=== PATIENT | male | born 1945 | race Caucasian/White ===

== ENCOUNTER 2022-06-24 15:13 | Inpatient (IN) | payer OTHER ==
[~2022-06-24] VITALS: Ht 177.8 cm; Wt 88.5 kg
[~2022-06-24 15:13] MED LIST: COZAAR50 MG PO; CRESTOR10 MG PO; LEVAQUIN750 MG PO
[2022-06-24] MEDS ORDERED: TAMSULOSIN HCL0.4 MG PO (15:22)
--- NOTE | 2022-06-24 15:23 | NUR ---
PACIENTE RECIBIDO EN AMBULANCIA EL MISMO REFIERE DOLOR EN TODO EL CUERPO, EN EL ABDOMEN Y PELVIS. REFIERE QUE EN EL MORALES DE MEGAN ESTUVO ORINANDO MUCHO Y CON EARNEST.
--- NOTE | 2022-06-24 16:57 | NUR ---
PTE MASCULINO ALERTA Y ORIENTADAO X3 ES EVALUADO POR . SE ORIENTA SOBRE ORDENES DE [place] REFIERE COMPRENDER. SE COLECTAN MUESTRAS DE LABORATORIOS Y SE CANALIZA VENA BAJO MEDIDAS ASEPTICAS. SE ADMINISTRAN MEDICAMENTOS, BAJO MEDIDAS ASEPTICAS.
[2022-07-07] MEDS ORDERED: TIZANIDINE HCL4 M1 (16:15)
[2022-07-07] MEDS ORDERED: FINASTERIDE5 MG (16:15)
[2022-07-07] MEDS ORDERED: EZETIMIBE10 MG (16:15)
[2022-07-09] MEDS ORDERED: FINASTERIDE5 MG PO (13:40)
[2022-07-09] MEDS ORDERED: VITAMIN C500 M1 PO (13:40)
[2022-07-09] MEDS ORDERED: TAMSULOSIN HCL0.4 MG PO (13:40)
[2022-07-09] MEDS ORDERED: cardura PO (13:40)
== END 2022-07-09 17:41 | disposition home or self-care (01) | DRG 689 ==
LOC: ER 15:13 → MEDJ 21:23 → MEDI 06-25 14:03 → MEDJ 07-05 12:57
PROVIDERS: ADMIT Internal Medicine Geriatric Medicine; ATTEND Internal Medicine Geriatric Medicine
PROC: 8E0ZXY6 Isolation (ICD-10-PCS; 2022-06-26)
PROC: BW21YZZ Computerized Tomography (CT Scan) of Abdomen and Pelvis using Other Contrast (ICD-10-PCS; 2022-06-30)
PROC: 02HV33Z Insertion of Infusion Device into Superior Vena Cava, Percutaneous Approach (ICD-10-PCS; principal; 2022-07-02)
DX: N39.0 Urinary tract infection, site not specified (principal); U07.1 COVID-19; Z16.12 Extended spectrum beta lactamase (ESBL) resistance; N17.8 Other acute kidney failure; B96.29 Other Escherichia coli [E. coli] as the cause of diseases classified elsewhere; N41.8 Other inflammatory diseases of prostate; E78.5 Hyperlipidemia, unspecified; N40.1 Benign prostatic hyperplasia with lower urinary tract symptoms; I25.10 Atherosclerotic heart disease of native coronary artery without angina pectoris; I12.9 Hypertensive chronic kidney disease with stage 1 through stage 4 chronic kidney disease, or unspecified chronic kidney disease; N18.9 Chronic kidney disease, unspecified

== ENCOUNTER 2022-12-03 10:58 | Inpatient (IN) | payer OTHER ==
[~2022-12-03] VITALS: Ht 152.4 cm; Wt 93.0 kg
[~2022-12-03 10:58] MED LIST changes: +EZETIMIBE10 MG; +FINASTERIDE5 MG; +FINASTERIDE5 MG PO; +TAMSULOSIN HCL0.4 MG PO; +TIZANIDINE HCL4 M1; +VITAMIN C500 M1 PO; +cardura PO
[2022-12-11] MEDS ORDERED: LOSARTAN POTAS100 MG PO (14:02)
[2022-12-11] MEDS ORDERED: INTESTINEX680 M1 PO (14:02)
[2022-12-11] MEDS ORDERED: AMOX-CLAV 875-1 EAC1 PO (14:02)
[2022-12-11] MEDS ORDERED: TAMS0.4C PO (14:02)
== END 2022-12-11 17:18 | disposition home or self-care (01) | DRG 683 ==
LOC: ER 10:58 → MEDJ 16:59 → MEDI 12-04 19:42
PROVIDERS: ADMIT Internal Medicine; ATTEND Internal Medicine
PROC: BT4JZZZ Ultrasonography of Kidneys and Bladder (ICD-10-PCS; principal; 2022-12-08)
DX: N17.8 Other acute kidney failure (principal); N39.0 Urinary tract infection, site not specified; N41.0 Acute prostatitis; B96.29 Other Escherichia coli [E. coli] as the cause of diseases classified elsewhere; I12.9 Hypertensive chronic kidney disease with stage 1 through stage 4 chronic kidney disease, or unspecified chronic kidney disease; N18.9 Chronic kidney disease, unspecified; E86.0 Dehydration; E78.49 Other hyperlipidemia; N20.0 Calculus of kidney

== ENCOUNTER 2024-03-15 10:03 | Outpatient (CLI) | payer OTHER ==
[~2024-03-15 10:03] MED LIST changes: +AMOX-CLAV 875-1 EAC1 PO; +INTESTINEX680 M1 PO; +LOSARTAN POTAS100 MG PO; +TAMS0.4C PO
== END 2024-03-15 10:14 | disposition home or self-care (01) ==
LOC: MRI 10:03
PROVIDERS: ATTEND Internal Medicine
DX: M51.26 Other intervertebral disc displacement, lumbar region (principal)
CPT/HCPCS: 72148